=== PATIENT | female | born 1960 | race Caucasian/White ===

== ENCOUNTER → 2019-07-02 | Outpatient (CLI) | payer OTHER ==
[~2019-07-02] MED LIST: CITA20; DIGOXIN PO; DILT120 PO; LISI20 PO; MELOX; METF500 PO
[2019-07-02 14:18] LABS: Source, Urine Clean Catch
[2019-07-02 18:26] LABS: Bilirubin, Urine Neg (Neg); Blood, Urine 5+ (Neg); Glucose Qualitative, Urine Neg (Neg); Ketones, Urine 1+ (Neg); Leukocyte Esterase, Urine 3+ (Neg); Nitrite, Urine Neg (Neg); Protein, Urine 3+ (Neg); Specific Gravity, Urine 1.015 (1.003-1.022); Urobilinogen, Urine NORM (Normal)
[2019-07-02 18:56] LABS: Appearance, Urine Hazy (Clear); Color, Urine Yellow (P-Yellow)
[2019-07-02 18:58] LABS: Bacteria Many /hpf; Red Blood Cells, Urine 50-100 /hpf (0-2); Squamous Epithelial Cells Mod /hpf (Few); White Blood Cells, Urine 50-100 /hpf (0-5)
== END | disposition home or self-care (01) ==
LOC: LAB SRC 14:17 → LAB SHORT 14:17
PROVIDERS: Nurse Practitioner Family
DX: N39.0 Urinary tract infection, site not specified (principal)
CPT/HCPCS: 81001; 87086

== ENCOUNTER → 2020-09-29 | Outpatient (CLI) | payer OTHER ==
[2020-09-30 16:11] LABS: HPV 16 Negative (Negative); HPV 18 Negative (Negative); HPV OTHER HR TYPES Negative (Negative)
== END ==
LOC: LAB SHORT 15:37 → LAB SRC 15:37
PROVIDERS: Nurse Practitioner Family
DX: Z00.00 Encounter for general adult medical examination without abnormal findings (principal)
CPT/HCPCS: 87624; G0123

== ENCOUNTER 2024-03-03 23:21 | Emergency (ER) | payer OTHER ==
[~2024-03-03] VITALS: Ht 167.6 cm; Wt 90.7 kg
[2024-03-04] MEDS ORDERED: FentaNYL Citrate 50 MCG/ML 2 ML Injection IV ONE (03:15)
[2024-03-04] MEDS ORDERED: Midazolam HCL 1 MG/ML 5MLVIAL IV SCH (04:50)
[2024-03-04] MEDS ORDERED: Ketamine HCL 10 MG/ML 5ML SYR IV ONE (04:50)
[2024-03-04] MEDS ORDERED: Ondansetron HCl 2 MG / ML 2ML Vial IV ONE (04:55)
[2024-03-04] MEDS ORDERED: Ketamine HCl 100 MG / ML 5ML Vial IV ONE (05:00)
[2024-03-04] MEDS ORDERED: ACET500 PO (06:53)
[2024-03-04] MEDS ORDERED: Ibuprofen600 MG PO (06:53)
[2024-03-04 07:27] VITALS: BP 125/76
== END 2024-03-04 07:50 | disposition home or self-care (01) ==
LOC: ER 23:21
DX: S43.014A Anterior dislocation of right humerus, initial encounter (principal); S43.034A Inferior dislocation of right humerus, initial encounter; W01.0XXA Fall on same level from slipping, tripping and stumbling without subsequent striking against object, initial encounter; Z79.84 Long term (current) use of oral hypoglycemic drugs; Z79.899 Other long term (current) drug therapy; Z87.891 Personal history of nicotine dependence
CPT/HCPCS: 23650; 71100; 73030; 73060; 76000; 96374-59; 96375-59; 99152; 99153; 99284-25; J2250; J2405; J3010

== ENCOUNTER 2025-07-13 06:05 | Inpatient (IN) | payer OTHER ==
[~2025-07-13] VITALS: Ht 165 cm; Wt 75.0 kg
[2025-07-13] VITALS (14 sets, daily range): BP systolic 108–159; BP diastolic 47–81
[~2025-07-13 06:05] MED LIST changes: +ACET500 PO; +Acetaminophen325 M1 PO; -CITA20; +CITA20 PO; +DICL75ER PO; -DILT120 PO; +DILT60 PO; +Ibuprofen600 MG PO; -METF500 PO; +METFORMIN HCL1000 MG PO; +OZEMPIC0.25 MG/02 SC
[2025-07-13] MEDS ORDERED: CeFAZolin Sodium 2,000 MG in NS 100 ML IV SCH (06:35)
[2025-07-13] MEDS ORDERED: Bupivacaine 0.5% HCl 5 MG/ML 30MLVIAL ONE (06:53)
[2025-07-13] MEDS ORDERED: Dexamethasone Sod Phos 10 MG/ML 1ML VIAL ONE (06:58)
[2025-07-13] MEDS ORDERED: Midazolam HCl 1MG / ML 2ML Vial ONE (06:58)
[2025-07-13] MEDS ORDERED: Ondansetron HCl 2 MG / ML 2ML Vial ONE (06:58)
[2025-07-13] MEDS ORDERED: FentaNYL Citrate 50 MCG/ML 2 ML Injection ONE (06:58)
[2025-07-13] MEDS ORDERED: Rocuronium Bromide 10 MG/ML 5ML Injection IV ONE (07:34)
[2025-07-13] MEDS ORDERED: Phenylephrine HCl 100 MCG/ML-NS 10MLSYR (1MG/10ML) ONE (07:34)
[2025-07-13] MEDS ORDERED: ePHEDrine Sulfate 50 MG/ML 1ML Injection ONE (07:52)
--- NOTE | 2025-07-13 07:53 | NUR ---
History, Chart, Medications and Allergies reviewed before start of procedure. Pre-Op teaching done. Pt verbalizes understanding. Patient confirms NPO status and agrees with scheduled surgery. Patient reports completing Chlorhexadine shower X2 prior to admission to hospital. Surgical site prepped with 2% Chlorhexidine cloth wipe. Patient States Post-Procedure ride home has been arranged.
[2025-07-13] MEDS ORDERED: Sugammadex Sodium 200 MG/2ML SDV (100 MG/ML) ONE ×2 (07:59→08:46)
[2025-07-13] MEDS ORDERED: HydrALAZINE HCl 20 MG / ML 1ML Vial IV PRN (08:10)
[2025-07-13] MEDS ORDERED: FentaNYL Citrate 50 MCG/ML 2 ML Injection IV PRN ×2 (08:10)
[2025-07-13] MEDS ORDERED: HYDROmorphone HCl/Pf 1MG SYR IV PRN ×2 (08:10)
[2025-07-13] MEDS ORDERED: ePHEDrine Sulfate 50 MG/ML 1ML Injection IV PRN (08:10)
[2025-07-13] MEDS ORDERED: Metoclopramide HCl 5MG / ML 2ML Vial IV PRN (08:10)
[2025-07-13] MEDS ORDERED: Ketorolac Tromethamine 30mg Vial ONE (08:12)
[2025-07-13] MEDS ORDERED: Albuterol 2.5 MG/3 ML VIAL INH PRN (08:15)
[2025-07-13] MEDS ORDERED: Ondansetron HCl 2 MG / ML 2ML Vial IV PRN (08:20)
[2025-07-13] MEDS ORDERED: HYDROmorphone HCl/Pf 1MG SYR ONE ×2 (08:43→10:16)
[2025-07-13] MEDS ORDERED: HYDROcodone 5-APAP 325 TAB PO PRN ×2 (09:45→10:20)
--- NOTE | 2025-07-13 13:07 | NUR ---
DISCHARGE NOTE PT A&OX4, BREATHING RA, VSS, PT TOLERATING PO INTAKE, AT BEDSIDE. MAGNUS DRAINING SANGUINOUS FLUID, EMPTIED ONCE DURING RECOVERY 20CC. DRAIN CARE INSTRUCTIONS GIVEN. PT WEARING ABDOMINAL BINDER. ICE PACK TO ABDOMEN. Patient up to Ambulate independently. Gait steady. Discharge instructions reviewed with patient. Patient verbalizes understanding. Copy given to patient to take home. Dressing to procedure site clean, dry, intact with no visible drainage, swelling, erythema or bruising noted. Discharged via wheelchair to private car for ride home. PT STATES PAIN IS TOLERABLE UPON DISCHARGE AND HAS NO NAUSEA. PT ABLE TO DRESS INDEPENDENTLY. UP TO BR AND VOIDED PRIOR TO DC.
== END 2025-07-14 06:16 | disposition left against medical advice (07) | DRG 355 ==
LOC: MEDS 06:05
PROVIDERS: ADMIT Surgery
PROC: 0WUF0JZ Supplement Abdominal Wall with Synthetic Substitute, Open Approach (ICD-10-PCS; 2025-07-13)
PROC: 3E03329 Introduction of Other Anti-infective into Peripheral Vein, Percutaneous Approach (ICD-10-PCS; principal; 2025-07-13 07:30)
DX: K43.0 Incisional hernia with obstruction, without gangrene (principal); I10 Essential (primary) hypertension; E11.9 Type 2 diabetes mellitus without complications; F17.220 Nicotine dependence, chewing tobacco, uncomplicated; Z90.49 Acquired absence of other specified parts of digestive tract; Z98.890 Other specified postprocedural states; Z79.899 Other long term (current) drug therapy; Z79.84 Long term (current) use of oral hypoglycemic drugs; Z79.85 Long-term (current) use of injectable non-insulin antidiabetic drugs
CPT/HCPCS: 82947; A9270; C1781; J0690; J1100; J1171; J1885; J2250; J2371; J2405; J2704; J3010; J7120